=== PATIENT | female | born 1950 | race Caucasian/White ===

== ENCOUNTER → 2018-02-07 08:58 | Outpatient (CLI) | payer OTHER, MEDICARE, SELFPAY ==
[2018-02-07 11:08] LABS: ALB/GLOB Ratio 1.4 RATIO (0.9-2.4); AST(SGOT) 18 U/L (15-37); Alanine Aminotransfer ALT/SGPT 26 U/L (13-56); Albumin, Serum 4.2 g/dL (3.2-5.0); Alkaline Phosphatase 58 U/L (45-117); Anion Gap 10 (5-15); BUN 27 mg/dL (7-18); BUN/Creat Ratio 24.1 RATIO (10-20); Calcium,Total 10.4 mg/dL (8.5-10.1); Chloride 106 mmol/L (98-107); Creatinine, Serum 1.12 mg/dL (0.55-1.02); EST Glomerular Filtration Rate 52 mL/min (>60); Est Glom Filt Rate - Afr Amer 63 mL/min (>60); Globulin 3.1 g/dL (2.2-4.2); Glucose 81 mg/dL (74-106); Potassium 4.7 mmol/L (3.5-5.1); Protein, Total 7.3 g/dL (6.4-8.2); Sodium Level 141 mmol/L (136-145)
== END ==
PROVIDERS: Family Provider Family Medicine; PCP Family Medicine; Visit Provider Family Medicine
DX: E11.9 Type 2 diabetes mellitus without complications (principal)
CPT/HCPCS: 36415; 80053; 84443

== ENCOUNTER → 2018-03-20 08:55 | Outpatient (CLI) | payer OTHER, MEDICARE, SELFPAY ==
--- NOTE | 2018-03-20 08:55 | DT_ITS ---
This patient was seen during an EMR downtime March 18, 2018 - March 25, 2018. This patient may have a combination of paper and electronic documentation or all paper documentation. All documentation is viewable within the e-chart portion of [facility] for each patient visit.
[2018-03-25 12:44] LABS: BUN 28 mg/dL (7-18); BUN/Creat Ratio 26.9 RATIO (10-20); Calcium,Total 9.7 mg/dL (8.5-10.1); Creatinine, Serum 1.04 mg/dL (0.55-1.02); EST Glomerular Filtration Rate 56 mL/min (>60); Est Glom Filt Rate - Afr Amer 68 mL/min (>60); Glucose 176 mg/dL (74-106); PTHIN 70.3 pg/mL (18.4-80.1); Potassium 4.3 mmol/L (3.5-5.1); Sodium Level 141 mmol/L (136-145)
[2018-03-25 12:45] LABS: Anion Gap 11 (5-15); Chloride 107 mmol/L (98-107)
== END ==
PROVIDERS: Family Provider Family Medicine; PCP Family Medicine; Visit Provider Family Medicine
DX: E83.52 Hypercalcemia (principal)
CPT/HCPCS: 36415; 80048; 82330; 83970

== ENCOUNTER → 2018-12-19 08:36 | Outpatient (CLI) | payer OTHER, MEDICARE, SELFPAY ==
[2018-12-19 10:39] LABS: ALB/GLOB Ratio 1.3 RATIO (0.9-2.4); AST(SGOT) 13 U/L (15-37); Alanine Aminotransfer ALT/SGPT 20 U/L (13-56); Albumin, Serum 4.1 g/dL (3.2-5.0); Alkaline Phosphatase 72 U/L (45-117); Anion Gap 8 (5-15); BUN 23 mg/dL (7-18); BUN/Creat Ratio 24.4 RATIO (10-20); Calcium,Total 9.6 mg/dL (8.5-10.1); Chloride 109 mmol/L (98-107); Cholesterol 162 mg/dL (200); Creatinine, Serum 0.94 mg/dL (0.55-1.02); EST Glomerular Filtration Rate 63 mL/min (>60); Est Glom Filt Rate - Afr Amer 76 mL/min (>60); Ferritin 23 ng/mL (8-252); Globulin 3.1 g/dL (2.2-4.2); Glucose 120 mg/dL (74-106); High Density Lipoprotein 43 mg/dL; Magnesium 1.6 mg/dL (1.6-2.6); Potassium 4.2 mmol/L (3.5-5.1); Protein, Total 7.2 g/dL (6.4-8.2); Sodium Level 140 mmol/L (136-145); Thyroid Stim Hormone (TSH) 1.47 uIU/mL (0.358-3.74); Triglycerides 172 mg/dL; Very Low Density Lipoprotein 34 mg/dL (5-40)
[2018-12-19 10:58] LABS: Vitamin B12 200 pg/mL (211-911); Vitamin D,25 Hydroxy 13.2 ng/mL (29.95-100.01)
== END ==
PROVIDERS: Family Provider Family Medicine; PCP Family Medicine; Referring Provider Family Medicine; Visit Provider Family Medicine
DX: R20.2 Paresthesia of skin (principal); E11.9 Type 2 diabetes mellitus without complications
CPT/HCPCS: 36415; 80053; 80061; 82306; 82607; 82728; 83735; 84443

== ENCOUNTER → 2019-02-27 | Outpatient (CLI) | payer OTHER, MEDICARE, SELFPAY ==
[2019-02-27 12:35] LABS: Anion Gap 10 (5-15); BUN 23 mg/dL (7-18); BUN/Creat Ratio 20.5 RATIO (10-20); Calcium,Total 10.1 mg/dL (8.5-10.1); Chloride 107 mmol/L (98-107); Creatinine, Serum 1.12 mg/dL (0.55-1.02); EST Glomerular Filtration Rate 52 mL/min (>60); Est Glom Filt Rate - Afr Amer 62 mL/min (>60); Glucose 108 mg/dL (74-106); Potassium 4.7 mmol/L (3.5-5.1); Sodium Level 143 mmol/L (136-145)
[2019-02-27 13:10] LABS: Vitamin B12 1375 pg/mL (211-911); Vitamin D,25 Hydroxy 49.2 ng/mL (29.95-100.01)
== END | disposition home or self-care (01) ==
PROVIDERS: Family Provider Family Medicine; PCP Family Medicine; Referring Provider Family Medicine; Visit Provider Family Medicine
DX: I10 Essential (primary) hypertension (principal); E53.8 Deficiency of other specified B group vitamins; E55.9 Vitamin D deficiency, unspecified
CPT/HCPCS: 36415; 80048; 82306; 82607

== ENCOUNTER → 2019-07-31 10:24 | Outpatient (CLI) | payer OTHER, MEDICARE, SELFPAY ==
[2019-07-31 12:35] LABS: Anion Gap 6 (5-15); BUN 28 mg/dL (7-18); BUN/Creat Ratio 23.9 RATIO (10-20); Calcium,Total 10.4 mg/dL (8.5-10.1); Chloride 107 mmol/L (98-107); Cholesterol 155 mg/dL (200); Creatinine, Serum 1.17 mg/dL (0.55-1.02); EST Glomerular Filtration Rate 49 mL/min (>60); Est Glom Filt Rate - Afr Amer 59 mL/min (>60); Glucose 109 mg/dL (74-106); High Density Lipoprotein 45 mg/dL; Potassium 4.5 mmol/L (3.5-5.1); Sodium Level 139 mmol/L (136-145); Triglycerides 165 mg/dL; Very Low Density Lipoprotein 33 mg/dL (5-40)
[2019-07-31 12:39] LABS: Vitamin B12 1389 pg/mL (211-911)
== END ==
PROVIDERS: Family Provider Family Medicine; PCP Family Medicine; Referring Provider Family Medicine; Visit Provider Family Medicine
DX: E11.9 Type 2 diabetes mellitus without complications (principal); E53.8 Deficiency of other specified B group vitamins; E55.9 Vitamin D deficiency, unspecified
CPT/HCPCS: 36415; 80048; 80061; 82306; 82607

== ENCOUNTER → 2019-12-22 08:39 | Outpatient (CLI) | payer OTHER, MEDICARE, SELFPAY ==
[2019-12-22 10:27] LABS: Anion Gap 6 (5-15); BUN 25 mg/dL (7-18); Chloride 109 mmol/L (98-107); EST Glomerular Filtration Rate 59 mL/min (>60); Est Glom Filt Rate - Afr Amer 71 mL/min (>60); Glucose 138 mg/dL (74-106); Potassium 4.2 mmol/L (3.5-5.1); Sodium Level 140 mmol/L (136-145)
== END ==
PROVIDERS: PCP Family Medicine; Referring Provider Family Medicine; Visit Provider Family Medicine
DX: I10 Essential (primary) hypertension (principal)
CPT/HCPCS: 36415; 80048

== ENCOUNTER → 2020-10-21 10:04 | Outpatient (CLI) | payer OTHER, MEDICARE, SELFPAY ==
[2020-10-21 12:54] LABS: Vitamin D,25 Hydroxy 21.9 ng/mL
[2020-10-21 13:03] LABS: ALB/GLOB Ratio 1.3 RATIO (0.9-2.4); AST(SGOT) 15 U/L (15-37); Alanine Aminotransfer ALT/SGPT 31 U/L (13-56); Albumin, Serum 4.1 g/dL (3.2-5.0); Alkaline Phosphatase 88 U/L (45-117); Anion Gap 7 (5-15); BUN 26 mg/dL (7-18); BUN/Creat Ratio 23.6 RATIO (10-20); Calcium,Total 9.8 mg/dL (8.5-10.1); Chloride 107 mmol/L (98-107); Cholesterol 170 mg/dL (200); EST Glomerular Filtration Rate 52 mL/min (>60); Est Glom Filt Rate - Afr Amer 63 mL/min (>60); Globulin 3.2 g/dL (2.2-4.2); Glucose 169 mg/dL (74-106); High Density Lipoprotein 47 mg/dL; Potassium 4.6 mmol/L (3.5-5.1); Protein, Total 7.3 g/dL (6.4-8.2); Sodium Level 138 mmol/L (136-145); Triglycerides 194 mg/dL; Very Low Density Lipoprotein 39 mg/dL (5-40)
== END ==
PROVIDERS: PCP Family Medicine; Referring Provider Family Medicine; Visit Provider Family Medicine
DX: E78.5 Hyperlipidemia, unspecified (principal); E11.9 Type 2 diabetes mellitus without complications; E55.9 Vitamin D deficiency, unspecified
CPT/HCPCS: 36415; 80053; 80061; 82306

== ENCOUNTER → 2020-12-14 09:00 | Outpatient (CLI) | payer OTHER, MEDICARE, SELFPAY ==
--- NOTE | 2020-12-14 09:08 | US_ITS ---
STUDY: THYROID ULTRASOUND REASON FOR EXAM: Female, 70 years old. NODULE TECHNIQUE: Ultrasound evaluation of the thyroid was performed with real-time and static alejandre-scale imaging. COMPARISON: None. FINDINGS: RIGHT LOBE: The right lobe of the thyroid gland measures 4.5 cm x 1.7 cm x 2.3 cm. There is a homogeneous echotexture. There is a 9 mm x 4 mm x 4 mm cyst. There is also evidence of a 1 cm x 0.6 x 0.7 cm slightly echogenic solid nodule as well as a complex solid and cystic nodule with calcific rim measuring 1.1 cm x 0.9 cm x 0.8 cm. LEFT LOBE: The left lobe of the thyroid gland measures 4.3 cm x 1.7 cm x 1.5 cm. There is a homogeneous echotexture. There are 3 subcentimeter solid and cystic nodules the largest measuring 1 cm x 0.6 cm x 0.4 cm. ISTHMUS: The isthmus measures 4 mm. There is a 2.2 cm x 0.7 cm x 0.5 cm benign appearing left cervical lymph US/Thyroid IMPRESSION: Bilateral thyroid nodules. The largest nodule in the right lobe measures 1.1 cm x 0.9 cm x 0.8 cm. This is a complex solid and cystic nodule with calcific rim. The largest nodule in the left lobe measuring 1 cm x 0.6 x 0.4 cm. Electronically Signed: Noe Evans MD at 13:35 EST , Service support ,
== END ==
PROVIDERS: PCP Family Medicine; Referring Provider Otolaryngology; Visit Provider Otolaryngology
DX: E04.1 Nontoxic single thyroid nodule (principal)
CPT/HCPCS: 76536

== ENCOUNTER → 2021-07-04 08:28 | Outpatient (CLI) | payer OTHER, MEDICARE, SELFPAY ==
[2021-07-04 10:31] LABS: Vitamin D,25 Hydroxy 43.2 ng/mL
[2021-07-04 10:49] LABS: ALB/GLOB Ratio 1.1 RATIO (0.9-2.4); AST(SGOT) 19 U/L (15-37); Alanine Aminotransfer ALT/SGPT 34 U/L (13-56); Albumin, Serum 3.7 g/dL (3.2-5.0); Alkaline Phosphatase 74 U/L (45-117); Anion Gap 10 (5-15); BUN 28 mg/dL (7-18); BUN/Creat Ratio 28.4 RATIO (10-20); Calcium,Total 9.8 mg/dL (8.5-10.1); Chloride 107 mmol/L (98-107); Cholesterol 174 mg/dL (200); Creatinine, Serum 0.99 mg/dL (0.55-1.02); EST Glomerular Filtration Rate 59 mL/min (>60); Est Glom Filt Rate - Afr Amer 72 mL/min (>60); Globulin 3.5 g/dL (2.2-4.2); Glucose 142 mg/dL (74-106); High Density Lipoprotein 52 mg/dL; Potassium 4.4 mmol/L (3.5-5.1); Protein, Total 7.2 g/dL (6.4-8.2); Sodium Level 139 mmol/L (136-145); Thyroid Stim Hormone (TSH) 1.48 uIU/mL (0.358-3.74); Triglycerides 194 mg/dL; Very Low Density Lipoprotein 39 mg/dL (5-40)
== END ==
PROVIDERS: PCP Family Medicine; Visit Provider Family Medicine
DX: E11.69 Type 2 diabetes mellitus with other specified complication (principal); E55.9 Vitamin D deficiency, unspecified
CPT/HCPCS: 36415; 80053; 80061; 82306; 84443

== ENCOUNTER → 2022-07-17 | Outpatient (CLI) | payer OTHER, MEDICARE, SELFPAY ==
[2022-07-17 10:23] LABS: Anion Gap 8 (5-15); BUN 26 mg/dL (7-18); BUN/Creat Ratio 26.2 RATIO (10-20); Calcium,Total 10.1 mg/dL (8.5-10.1); Chloride 107 mmol/L (98-107); Cholesterol 141 mg/dL (200); Creatinine, Serum 0.99 mg/dL (0.55-1.02); EST Glomerular Filtration Rate 59 mL/min (>60); Est Glom Filt Rate - Afr Amer 71 mL/min (>60); Glucose 117 mg/dL (74-106); High Density Lipoprotein 45 mg/dL; Potassium 4.1 mmol/L (3.5-5.1); Sodium Level 141 mmol/L (136-145); Triglycerides 116 mg/dL; Very Low Density Lipoprotein 23 mg/dL (5-40)
[2022-07-17 10:24] LABS: Vitamin B12 205 pg/mL (211-911); Vitamin D,25 Hydroxy 47.7 ng/mL
== END | disposition home or self-care (01) ==
LOC: MFPLAB 08:24
PROVIDERS: PCP Family Medicine; Visit Provider Family Medicine
DX: E11.59 Type 2 diabetes mellitus with other circulatory complications (principal); E53.8 Deficiency of other specified B group vitamins; E55.9 Vitamin D deficiency, unspecified
CPT/HCPCS: 36415; 80048; 80061; 82306; 82607

== ENCOUNTER → 2022-11-07 | Outpatient (CLI) | payer OTHER, MEDICARE, SELFPAY ==
[2022-11-07 12:30] LABS: Erythrocyte Sedimentation Rate 14 mm/hr (0-30)
[2022-11-07 12:33] LABS: Absolute Lymphocyte Count 1.61 X10^3/uL (0.83-4.51); Basophil# 0.04 X10^3/uL; Basophil% 0.7 % (0-1); Eosinophil# 0.44 X10^3/uL; Hematocrit 40.4 % (37-47); Hemoglobin 13.2 g/dL (12.0-15.0); Lymphocyte # 1.61 X10^3/ul (0.83-4.51); Lymphocyte % 29.1 % (19-41); Mean Corp Hgb Conc 32.7 g/dL (32-36); Mean Corpuscular Hgb 27.9 pg (27.0-32.0); Mean Corpuscular Volume 85.4 fL (81-99); Mean Platelet Vol. 10.8 fl (6.2-12.0); Monocyte# 0.49 X10^3/uL; Monocyte% 8.9 % (0-10); NRBC Flagged by Analyzer 0 % (0-5); Neutrophil # 2.95 X10^3/uL (2.7-7.7); Neutrophil % 53.3 % (47-70); Platelet Count 283 K/mm3 (150-450); RBC Distribution Width CV 14.8 % (11.6-14.6); RBC Distribution Width SD 46.5 fl (35.1-43.9); Red Blood Count 4.73 M/mm3 (4.2-5.4); White Blood Count 5.5 K/mm3 (4.4-11.0)
[2022-11-07 13:07] LABS: ALB/GLOB Ratio 1.3 RATIO (0.9-2.4); AST(SGOT) 17 U/L (15-37); Alanine Aminotransfer ALT/SGPT 28 U/L (13-56); Albumin, Serum 4.3 g/dL (3.2-5.0); Alkaline Phosphatase 76 U/L (45-117); Anion Gap 13 (5-15); BUN 30 mg/dL (7-18); BUN/Creat Ratio 25.4 RATIO (10-20); CRP, High Sensitivity Cardiac 0.69 mg/L; Calcium,Total 10.3 mg/dL (8.5-10.1); Chloride 107 mmol/L (98-107); Creatinine, Serum 1.18 mg/dL (0.55-1.02); EST Glomerular Filtration Rate 48 mL/min (>60); Est Glom Filt Rate - Afr Amer 58 mL/min (>60); Ferritin 33 ng/mL (8-252); Globulin 3.3 g/dL (2.2-4.2); Glucose 112 mg/dL (74-106); Iron 74 ug/dL (50-170); Potassium 4.4 mmol/L (3.5-5.1); Protein, Total 7.6 g/dL (6.4-8.2); Sodium Level 140 mmol/L (136-145); Thyroid Stim Hormone (TSH) 1.16 uIU/mL (0.358-3.74)
[2022-11-08 20:01] LABS: Carcinoembryonic Antigen < 0.6 ng/mL (0.0-4.7)
== END | disposition home or self-care (01) ==
LOC: MTLAB 09:28
PROVIDERS: PCP Family Medicine; Referring Provider Family Medicine; Visit Provider Family Medicine
DX: R63.4 Abnormal weight loss (principal); R19.5 Other fecal abnormalities
CPT/HCPCS: 36415; 80053; 82378; 82728; 83540; 84443; 85025; 85652; 86141

== ENCOUNTER → 2022-11-20 | Outpatient (CLI) | payer OTHER, MEDICARE, SELFPAY ==
--- NOTE | 2022-11-20 07:54 | CT_ITS ---
STUDY: CT ABDOMEN AND PELVIS WITH CONTRAST REASON FOR EXAM: Female, 71 years old. Weight loss. RADIATION DOSAGE (If Supplied By Facility): CTDIvol = ( 21.15 ) mGy, DLP = ( 1138.25 ) mGycm TECHNIQUE: Transaxial images were obtained from the dome of the diaphragm to the symphysis pubis without oral contrast. IV 100mL Isovue-370 was administered. Sagittal and coronal images were reconstructed. Individualized dose optimization techniques were used for this CT. COMPARISON: None. FINDINGS: The visualized lung bases are unremarkable. Coronary artery calcification. There is decreased attenuation of the liver consistent with steatosis. Normal gallbladder and extrahepatic biliary system. Normal spleen. Normal pancreas. Normal bilateral adrenal glands. Right renal cysts. The larger cyst measures 5.6 cm x 6.1 and is in the posterior medial aspect of the kidney. Small left renal cysts. The largest measures 8.5 mm. Normal visualized stomach. Normal small intestine. Normal colon. History of prior appendectomy. There is diffuse atherosclerotic calcification of the abdominal aorta, without a demonstrated aneurysm. Normal inferior vena cava. Normal retroperitoneum. Normal urinary bladder. Minimal anterior abdominal wall skin thickening but the increased markings in the subcutaneous fat most likely secondary to prior INSULIN injection. Small umbilical hernia containing fat. There are diffuse degenerative changes of the visualized lumbar spine. Loss of the normal lumbar lordosis. CT/Abdomen/Pelvis WITH Contrast IMPRESSION: Coronary artery calcification. Fatty infiltration of the liver. Bilateral renal cysts more prominent on the right side. Small umbilical hernia. Electronically Signed: Noe Evans MD at 14:17 EST ,
== END | disposition home or self-care (01) ==
LOC: CT 07:52
PROVIDERS: PCP Family Medicine; Visit Provider Family Medicine
DX: R63.4 Abnormal weight loss (principal); I25.10 Atherosclerotic heart disease of native coronary artery without angina pectoris; Q61.02 Congenital multiple renal cysts; K46.9 Unspecified abdominal hernia without obstruction or gangrene; K76.0 Fatty (change of) liver, not elsewhere classified
CPT/HCPCS: 74177; Q9967

== ENCOUNTER → 2024-02-25 | Outpatient (CLI) | payer OTHER, MEDICARE, SELFPAY | END | disposition home or self-care (01) | LOC: MFPLAB 10:18 | PROVIDERS: PCP Family Medicine; Visit Provider Family Medicine | DX: Z00.00 Encounter for general adult medical examination without abnormal findings (principal) ==

== ENCOUNTER → 2024-02-26 | Outpatient (CLI) | payer OTHER, MEDICARE, SELFPAY ==
[2024-02-26 15:27] LABS: Hematocrit 39.1 % (37-47); Hemoglobin 12.7 g/dL (12.0-15.0); Mean Corp Hgb Conc 32.5 g/dL (32-36); Mean Corpuscular Volume 86.1 fL (81-99); Mean Platelet Vol. 10.4 fl (6.2-12.0); Platelet Count 303 K/mm3 (150-450); RBC Distribution Width SD 43.8 fl (35.1-43.9); Red Blood Count 4.54 M/mm3 (4.2-5.4); White Blood Count 8.1 K/mm3 (4.4-11.0)
[2024-02-26 15:35] LABS: Vitamin B12 1838 pg/mL (211-911); Vitamin D,25 Hydroxy 97.4 ng/mL
[2024-02-26 16:07] LABS: ALB/GLOB Ratio 1.4 RATIO (0.9-2.4); AST(SGOT) 19 U/L (15-37); Alanine Aminotransfer ALT/SGPT 24 U/L (13-56); Albumin, Serum 4.3 g/dL (3.2-5.0); Alkaline Phosphatase 72 U/L (45-117); Anion Gap 6 (5-15); BUN 28 mg/dL (7-18); BUN/Creat Ratio 16.6 RATIO (10-20); Calcium,Total 10.7 mg/dL (8.5-10.1); Chloride 109 mmol/L (98-107); Creatinine, Serum 1.69 mg/dL (0.55-1.02); EST Glomerular Filtration Rate 32 mL/min (>60); Est Glom Filt Rate - Afr Amer 38 mL/min (>60); Glucose 128 mg/dL (74-106); Iron 66 ug/dL (50-170); Magnesium 1.8 mg/dL (1.6-2.6); Potassium 4.1 mmol/L (3.5-5.1); Protein, Total 7.3 g/dL (6.4-8.2); Sodium Level 137 mmol/L (136-145); Thyroid Stim Hormone (TSH) 1.39 uIU/mL (0.358-3.74)
== END | disposition home or self-care (01) ==
LOC: MFPLAB 11:59
PROVIDERS: PCP Family Medicine; Visit Provider Family Medicine
DX: R00.2 Palpitations (principal); E53.8 Deficiency of other specified B group vitamins; R42 Dizziness and giddiness; E55.9 Vitamin D deficiency, unspecified
CPT/HCPCS: 36415; 80053; 82306; 82607; 83540; 83735; 84443; 85027

== ENCOUNTER → 2024-03-04 | Outpatient (CLI) | payer OTHER, MEDICARE, SELFPAY ==
--- NOTE | 2024-03-04 09:16 | BD_ITS ---
STUDY: DUAL ENERGY X-RAY ABSORPTIOMETRY / DXA REASON FOR EXAM: Female, 73 years old. Z780 TECHNIQUE: Bone Mineral Density (BMD) measurements of lumbar spine and bilateral hips were obtained. COMPARISON: None. FINDINGS: Lumbar Spine (L1-L4): g/cm2 (0.960) / T-score (-0.8) / Z-score (1.5) Findings are suggestive of normal bone density with a low fracture risk. Left Femur Total: g/cm2 (0.787) / T-score (-1.3) / Z-score (0.4) Left Femoral Neck: g/cm2 (0.680) / T-score (-1.5) / Z-score (0.4) Right Femur Total: g/cm2 (0.842) / T-score (-0.8) / Z-score (0.8) Right Femoral Neck: g/cm2 (0.682) / T-score (-1.5) / Z-score (0.4) BD/Dexa Bone Density Study IMPRESSION: The patient is considered osteopenic as outlined below according to World [employer] Organization (WHO) criteria with a low fracture risk. Reference Information: The T-score is the number of standard deviations above or below the standard which is normal for young adults at their peak bone mineral density. The World Health Organization (WHO) interprets the T-scores as follows: Above -1 Normal bone density Between -1 and -2.5 Osteopenia Equal to / or below -2.5 Osteoporosis As a practical clinical guideline, osteopenia may be graded as follows: Mild -1 through -1.5 Moderate -1.6 through -2.0 Severe -2.1 through -2.4 The Z-score is the number of standard deviations above or below age-matched controls. A Z-score of less than -1.5 would be considered abnormal. References: 1. NIH Osteoporosis and Related Bone Diseases www osteo.org 2. International Society for Clinical Densitometry www iscd.org 3. National Osteoporosis Foundation www nof.org Electronically Signed: Noe Evans MD at 15:40 EDT ,
== END | disposition home or self-care (01) ==
LOC: OPBD 09:13
PROVIDERS: PCP Family Medicine; Referring Provider Family Medicine; Visit Provider Family Medicine
DX: Z00.00 Encounter for general adult medical examination without abnormal findings (principal); Z78.0 Asymptomatic menopausal state
CPT/HCPCS: 77080

== ENCOUNTER → 2024-08-04 | Outpatient (CLI) | payer OTHER, MEDICARE, SELFPAY ==
--- NOTE | 2024-08-04 08:37 | ECHOD_ITS ---
Reason For Study: DYSPNEA Procedure This was a 2D Doppler, Color Flow transthoracic echocardiogram. Exam performed in department. Left Ventricle Normal size and thickness. The left ventricular ejection fraction is 65 %. Normal diastology for age. Right Ventricle Normal right ventricle. Atria The left and right atria are normal. Aneurysmal atrial septum. Bubble contrast study is positive for PFO. Mitral Valve Mild mitral annular calcification. Tricuspid Valve Trivial tricuspid valve insufficiency. Normal pulmonary artery pressure. Aortic Valve Trisinus/trileaflet aortic valve. Mild diffuse aortic valve thickening. Pulmonic Valve The pulmonic valve is not well visualized. Trivial pulmonic valve insufficiency. Great Vessels Normal sized aortic root. Pericardium/Pleural No pericardial effusion. Medication 22 gauge I.V. with prn adaptor inserted into right arm. Performed a rapid injection of agitated mix of 9 cc saline and 1cc air to assess for atrial septal defect. MMode/2D Measurements & Calculations LVIDd: 4.5 cm IVSd: 1.1 cm LVOT diam: 2.1 cm LVIDs: 2.5 cm LVPWd: 0.94 cm RVDd: 3.4 cm FS: 45.3 % LVOT area: 3.4 cm2 asc Aorta Diam: 3.4 cm LAV(MOD-bp): 51.7 ml LVAd ap4: 23.5 cm2 LAV(MOD-bp) Indexed: 27.3 ml/m2 LVLd ap4: 6.9 cm LAV(MOD-sp2): 55.8 ml EDV(MOD-sp4): 63.5 ml LAV(MOD-sp4): 44.7 ml EDV(sp4-el): 67.8 ml LVAs ap4: 12.2 cm2 LVLs ap4: 5.8 cm ESV(MOD-sp4): 20.9 ml ESV(sp4-el): 21.8 ml EF(MOD-sp4): 67.1 % EF(sp4-el): 67.9 % LVAd ap2: 22.3 cm2 SV(MOD-sp4): 42.6 ml SV(MOD-sp2): 38.7 ml LVLd ap2: 6.9 cm EDV(MOD-sp2): 58.6 ml EDV(sp2-el): 60.9 ml LVAs ap2: 11.7 cm2 LVLs ap2: 5.7 cm ESV(MOD-sp2): 19.9 ml ESV(sp2-el): 20.4 ml EF(MOD-sp2): 66.0 % SV(sp4-el): 46.0 ml Ao sinus diam: 3.[address] Junction: 2.8 cm LA dimension(2D): 3.8 cm LA A4 area: 16.9 cm2 RA A4 area: 10.3 cm2 TAPSE: 2.0 cm Time Measurements MV dec time: 0.29 sec Doppler Measurements & Calculations MV E max yefri: 83.1 cm/sec Lat Peak E' Yefri: 14.3 cm/sec Med Peak E' Yefri: 6.9 cm/sec MV A max yefri: 88.8 cm/sec E/E' lat: 5.8 E/E' med: 12.1 MV E/A: 0.94 MV dec slope: 290.4 cm/sec2 Ao V2 max: 166.3 cm/sec LV V1 max: 127.0 cm/sec Ao max P.1 mmHg LV V1 max P.4 mmHg Ao V2 mean: 102.7 cm/sec LV V1 mean P.0 mmHg Ao mean P.0 mmHg LV V1 mean: 79.4 cm/sec Ao V2 VTI: 38.3 cm LV V1 VTI: 30.2 cm AV (velocity ratio): 0.79 LOYD(I,D): 2.7 cm2 LOYD(V,D): 2.6 cm2 SV(LVOT): 104.1 ml PA V2 max: 161.1 cm/sec TR max yefri: 257.9 cm/sec PA max PG (full): 6.3 mmHg TR max P.6 mmHg ECHO/Echo Complete Interpretation Summary The left ventricular ejection fraction is 65 %. Aneurysmal atrial septum. Bubble contrast study is positive for PFO. Mild mitral annular calcification. Mild diffuse aortic valve thickening. Ordering Physician: Marko Andersen Referring Physician: Roger Moctezuma MD Performed By: Jane Awad RDCS
== END | disposition home or self-care (01) ==
LOC: CVS 08:37
PROVIDERS: PCP Family Medicine; Referring Provider Internal Medicine Cardiovascular Disease; Visit Provider Internal Medicine Cardiovascular Disease
DX: R06.09 Other forms of dyspnea (principal); E11.9 Type 2 diabetes mellitus without complications
CPT/HCPCS: 93306; A4216

== ENCOUNTER → 2024-08-25 | Outpatient (CLI) | payer OTHER, MEDICARE, SELFPAY ==
[2024-08-25 11:07] LABS: Anion Gap 7 (5-15); BUN 29 mg/dL (7-18); BUN/Creat Ratio 15.6 RATIO (10-20); Calcium,Total 10.4 mg/dL (8.5-10.1); Chloride 108 mmol/L (98-107); Creatinine, Serum 1.86 mg/dL (0.55-1.02); EST Glomerular Filtration Rate 28 mL/min (>60); Est Glom Filt Rate - Afr Amer 34 mL/min (>60); Glucose 137 mg/dL (74-106); Potassium 4.1 mmol/L (3.5-5.1); Sodium Level 139 mmol/L (136-145)
== END | disposition home or self-care (01) ==
LOC: LAB 10:22
PROVIDERS: PCP Family Medicine; Referring Provider Internal Medicine Cardiovascular Disease; Visit Provider Internal Medicine Cardiovascular Disease
DX: R06.09 Other forms of dyspnea (principal); E11.22 Type 2 diabetes mellitus with diabetic chronic kidney disease; N18.32 Chronic kidney disease, stage 3b
CPT/HCPCS: 36415; 80048

== ENCOUNTER → 2024-09-16 | Outpatient (CLI) | payer OTHER, MEDICARE, SELFPAY ==
[2024-09-16 12:24] VITALS: BP 147/61; PULSE 50; RESP 16; TEMP 36.4; O2SAT 98; BMI 27.1
[2024-09-16] MEDS: 0.9% Normal Saline (500mL Bag) 500 ML IV (12:45)
[2024-09-16 13:43] VITALS: BP 128/60; PULSE 47; RESP 16; O2SAT 96
[2024-09-16 13:51] VITALS: BP 128/60; PULSE 47
[2024-09-16] MEDS: Nitroglycerin SL (ED/IMG/CATH) 0.4 MG TABLET SL (13:51)
[2024-09-16 14:00] VITALS: BP 141/60; PULSE 49; RESP 16; O2SAT 98
--- NOTE | 2024-09-16 14:00 | CT_ITS ---
STUDY: CT CHEST WITH CONTRAST REASON FOR EXAM: Female, 73 years old. GRUBER r/o CAD RADIATION DOSAGE (If Supplied By Facility): CTDIvol = ( 41.82 ) mGy, DLP = ( 2117.82 ) mGycm TECHNIQUE: Transaxial imaging was performed following intravenous administration of IV 75mL Isovue-370. Cardiac over read examination. Individualized dose optimization techniques were used for this CT. COMPARISON: No relevant priors. FINDINGS: CHEST The lungs are normal. There is no demonstrated pleural abnormality. There are calcifications of the coronary arteries. Normal mediastinum. Normal hilar regions. Normal unenhanced pulmonary arteries. There is atherosclerotic calcification of the aortic arch. There are degenerative changes of the thoracic spine. Diffuse fatty infiltration of the liver. CT/Limited Chest CT Cardiac Only IMPRESSION: Coronary artery calcification. Diffuse fatty infiltration of the liver. Electronically Signed: Noe Evans MD at 15:16 EST ,
--- NOTE | 2024-09-19 07:49 | CA.SCORE ---
Calcium Scoring Date of Study:: 09/16/24 Coronary Calcium Scoring: High-resolution Computed Tomographic imaging of the chest was performed on [ ], with particular attention paid to the coronary arteries. Images from the examination were analyzed for the presence and extent of coronary artery calcification , using coronary calcium quantification software. The patient tolerated the procedure well and there were no complications. The results of the coronary calcification analysis are provided below. Calcium Scoring Interpretation: Different methods to categorize the overall amount of coronary plaque. Overall amount CAC SIS Visual of coronary plaque P1 Mild -100 <2 1-2 vessels with mild amount of plaque P2 Moderate 101-300 3-4 1-2 vessels with moderate amount, 3 vessels with mild amount of plaque P3 Severe 301-999 5-7 3 vessels with moderate amount, 1 vessel with severe amount of plaque P4 Extensive >1000 >8 2-3 vessels with severe amount of plaque
--- NOTE | 2024-09-19 10:05 | CCTA.WCONT ---
CCTA w/Cont Coronary Arteries Date of Study:: 09/16/24 Shortness of breath Coronary Calcium Scoring: High-resolution Computed Tomographic imaging of the chest was performed on [ ], with particular attention paid to the coronary arteries. Intravenous contrast agent was administered per protocol and images reconstructed and displayed. LEFT MAIN CORONARY ARTERY: Arises from the left coronary cusp with mild calcification present. No obvious stenosis present [] LEFT ANTERIOR DESCENDING CORONARY ARTERY: She does have moderate calcification noted in the proximal and mid segment and moderately severe in the midsegment. There is probably moderate stenosis noted in the left anterior descending artery [] LEFT CIRCUMFLEX CORONARY ARTERY: This vessel has eccentric calcification present in the proximal segment with moderate calcification present. [] RIGHT CORONARY ARTERY: This is a dominant vessel with moderate proximal to mid calcification present and likely moderate stenosis present. [] THORACIC AORTA: Calcification [] PULMONARY ARTERY: [] LEFT ATRIUM/APPENDAGE: [] MITRAL VALVE: [] AORTIC VALVE: [] LEFT VENTRICLE: [] CORONARY CALCIUM SCORE: Not performed Conclusion: CT angiogram mildly suboptimal with moderate three-vessel calcification and likely moderate occlusive disease. []
== END | disposition home or self-care (01) ==
LOC: CT 12:14
PROVIDERS: PCP Family Medicine; Referring Provider Internal Medicine Cardiovascular Disease; Visit Provider Internal Medicine Cardiovascular Disease
DX: R06.09 Other forms of dyspnea (principal); I25.10 Atherosclerotic heart disease of native coronary artery without angina pectoris
CPT/HCPCS: 96360; 75574; 76380; Q9967

== ENCOUNTER → 2024-09-23 | Outpatient (CLI) | payer OTHER, MEDICARE, SELFPAY ==
[2024-09-23 12:00] LABS: Absolute Lymphocyte Count 1.39 X10^3/uL (0.83-4.51); Absolute Neutrophil Count 2.8 X10^3/uL (2.0-7.7); Basophil# 0.07 X10^3/uL; Basophil% 1.3 % (0-1); Eosinophil# 0.62 X10^3/uL; Eosinophils% 11.6 % (0-5); Hematocrit 36.1 % (37-47); Hemoglobin 11.7 g/dL (12.0-15.0); Lymphocyte # 1.39 X10^3/ul (0.83-4.51); Lymphocyte % 25.9 % (19-41); Mean Corp Hgb Conc 32.4 g/dL (32-36); Mean Corpuscular Hgb 28.5 pg (27.0-32.0); Mean Platelet Vol. 9.8 fl (6.2-12.0); Monocyte# 0.42 X10^3/uL; Monocyte% 7.8 % (0-10); NRBC Flagged by Analyzer 0 % (0-5); Neutrophil % 52.3 % (47-70); Platelet Count 255 K/mm3 (150-450); RBC Distribution Width CV 13.9 % (11.6-14.6); RBC Distribution Width SD 44.7 fl (35.1-43.9); White Blood Count 5.4 K/mm3 (4.4-11.0)
[2024-09-23 12:08] LABS: International Normalized Ratio 1.2; Prothrombin Time (Protime)PT. 15.4 SECONDS (11.7-14.9)
[2024-09-23 13:13] LABS: Anion Gap 9 (5-15); BUN 43 mg/dL (7-18); BUN/Creat Ratio 21.3 RATIO (10-20); Calcium,Total 10.6 mg/dL (8.5-10.1); Chloride 112 mmol/L (98-107); Creatinine, Serum 2.02 mg/dL (0.55-1.02); EST Glomerular Filtration Rate 26 mL/min (>60); Est Glom Filt Rate - Afr Amer 31 mL/min (>60); Glucose 159 mg/dL (74-106); Potassium 4.3 mmol/L (3.5-5.1); Sodium Level 138 mmol/L (136-145)
== END | disposition home or self-care (01) ==
PROVIDERS: PCP Family Medicine; Referring Provider Internal Medicine Cardiovascular Disease; Visit Provider Internal Medicine Cardiovascular Disease
DX: N18.32 Chronic kidney disease, stage 3b (principal); I25.10 Atherosclerotic heart disease of native coronary artery without angina pectoris
CPT/HCPCS: 36415; 80048; 85025; 85610; 85730

== ENCOUNTER 2024-10-20 08:28 | Day surgery (SDC) | payer MEDICARE, OTHER, SELFPAY ==
--- NOTE | 2024-09-22 15:15 | PCM.HP.BLA ---
History and Physical Date of Admission: 10/20/24 Geri Martines is a 73-year-old white female recently established with us for concerns over progressive shortness of breath with exertion. She is here today to undergo a diagnostic heart catheterization. She also has a history of chronic kidney disease last blood work in February 2024 showed a creatinine of 1.69 with a GFR of 32. She also has a history of diabetes. The patient comes in reporting that she is gone to the point that when she goes to prepare meals she has to stop after just getting pots and pans out to prepare the meal sit down and rest and then gets up and starts to prepare the meal and has to sit down and rest again due to shortness of breath and fatigue. She is not able to go shopping that she cannot walk the [place] of the grocery store without having to sit down and rest. The patient's calcium is gone up over the last 6 months. It is 10.7 in February. Her LFTs were normal bilirubin was normal and C-reactive protein normal in October 2023. Patient's thyroid TSH was normal in February 2024. The patient was evaluated by the primary service and she declined a stress test as she is fearful of having a treadmill or pharmacologic stress test. She had an echo 20 or 30 years ago that she says did not show anything significant. This dyspnea on exertion and fatigue started about 3 months ago and has been progressive. She denies any lower extremity edema denies any PND orthopnea she does not have any neuropathy or carpal tunnel issues and has not had atrial fibrillation to suggest amyloid. The patient's EKG shows sinus bradycardia with nonspecific T wave changes otherwise is unremarkable. She underwent an echocardiogram which demonstrated an ejection fraction of 65%, aneurysmal atrial septum. Bubble contrast study positive for PFO. Mild mitral annular calcification, mild diffuse aortic valve thickening. She had a coronary angiogram which demonstrated mildly suboptimal with moderate three-vessel disease calcification likely with moderate occlusive disease. Because of this she will undergo a diagnostic heart catheterization. [facility] Medical History Type 2 diabetes mellitus Hyperlipidemia Dyspnea on exertion Hypertension Surgical History History of appendectomy History of tubal ligation Social History Smoking Status: Never smoker alcohol intake: never substance use type: marijuana caffeine: Yes ROS Const Const: Positive for fatigue and weakness ENT ENT: Negative for dizziness or balance problems Cardio Chest Pain: No Palpitations: No Edema: None Muscle aches with walking: None Resp Respiratory: Positive for SOB with activity and SOB at rest; Negative for SOB orthopnea\SOB lying down GI GI: Positive for nausea; Negative vomiting or heartburn Musc Musc: Negative for muscle weakness or balance problems Neuro Neuro: Positive for near syncope and weakness; Negative for dizziness, lightheadedness or syncope Endo Endo: Positive for fatigue Cardiology Exam Const Appearance: cooperative, no acute distress and well developed Head Head: normal to inspection Eyes General: appearance normal, both eyes and all related structures Neck Neck: normal visual inspection and no JVD Carotids: Negative bruit Chest Chest inspection: normal inspection of the chest Auscultation: Bilateral: Clear to Auscultation Cardio Rate: regular rate Rhythm: regular rhythm Heart sounds: S1 normal and S2 normal; Negative rub, gallop or murmur GI GI: normal to inspection Neuro General: patient alert and patient oriented x3 Skin Skin: no rashes or lesions noted Extremities Lower Extremity Edema: None: Bilateral Psych Psychological: anxious Assessment & Plan Assessment/Plan (1) Dyspnea on exertion: (2) Atherosclerotic cardiovascular disease: (3) Abnormal coronary angiogram: PLAN: Plan Patient is scheduled to undergo a diagnostic heart catheterization. Plan of care will be based on findings.
[2024-10-17 08:20] VITALS: BMI 28.3
--- NOTE | 2024-10-20 11:29 | CL.D_ITS ---
Patient Name: RUDDY HESS Study Date: 10/20/2024 Performing: Ayan Whitaker MD Ht: 66 inches 167.64 cm : 1950 Wt: 176 lbs 79.83 kg Age: 73 Gender: female BSA: 1.89 PROCEDURE(S) PERFORMED DC02-(50210)LHC/COR CLINICAL PROFILE AND INDICATIONS Indications: Suspected CAD Heart Failure: None Stress/Imaging Cardiac CTA: Yes Result: 3VDCardiac CTA: 3VD CAD Presentations: Symptom unlikely to be ischemic. CONCLUSIONS Diffuse coronary calcification with moderate disease noted in the LAD mid to distal circumflex and ostial right coronary artery. RECOMMENDATIONS Will recommend pharmacologic myocardial perfusion stress test to evaluate the ostial right coronary artery DESCRIPTION OF PROCEDURE The patient arrived to the procedure lab. The risks and benefits of the procedure as well as a full description of our services here and current unavailability of surgical backup were fully explained to the patient and/or their significant other prior to the catheterization. The Timeout was completed, verifying the correct patient and procedure. The patient's procedural site was prepped and draped in the usual fashion. Local anesthetic was given subcutaneously to right radial region with Lidocaine 2%. Using a modified Seldinger technique, arterial access was obtained via the right radial artery, a 6Fr sheath was inserted. Left Coronary Artery selective angiography was performed in multiple views using a 5 Fr. 4.0 [place] catheter. Right Coronary Artery selective angiography was then performed in multiple views using a 5 Fr. 4.0 [place] catheter. Right Coronary Artery selective angiography was then performed in multiple views using a 5 Fr. JR 5 catheter.The arterial sheath was pulled and a TR Band was applied for hemostasis 10 ml of air CORONARY ANGIOGRAPHY DOMINANCE: Right Dominant LEFT HEART ASSESSMENT Left Ventricular Ejection Fraction: by Echo 65 % Normal LV wall motion Normal Left Ventricular systolic function LEFT MAIN: Mild calcification, No significant disease noted LEFT ANTERIOR DESCENDING ARTERY: Moderate calcification, Moderate luminal irregularities up to 50% CIRCUMFLEX ARTERY: Moderate calcification DISTAL CIRC: Moderate luminal irregularities up to 50% RIGHT CORONARY ARTERY: Rest of the vessel appears to have 30 to 50% diffuse stenosis present OSTIAL RCA: Moderate calcification, Moderate luminal irregularities up to 50% COMPLICATIONS No Complications PROCEDURE MEDICATIONS Fentanyl 50 mcg IV Versed 1 mg IV Oxygen: 2 L/min via nasal cannula Heparin given IA 10/20/2024 10:59:25 SUMMARY OF HEMODYNAMIC DATA Time AIR REST ECG 08:49:06 AO 132/58 (87) SA 11:08:23 AO 134/51 (80) 11:09:40 AIR REST 11:28:29 Signed By Ayan Whitaker MD On 10/20/2024 11:28:52 Ayan Whitaker MD
== END 2024-10-20 13:35 | disposition home or self-care (01) ==
PROVIDERS: PCP Family Medicine; Referring Provider Internal Medicine Cardiovascular Disease; Visit Provider Internal Medicine Cardiovascular Disease
DX: I25.10 Atherosclerotic heart disease of native coronary artery without angina pectoris (principal); E11.9 Type 2 diabetes mellitus without complications; E78.5 Hyperlipidemia, unspecified; I10 Essential (primary) hypertension; R53.83 Other fatigue; R06.02 Shortness of breath; Z98.51 Tubal ligation status; F12.90 Cannabis use, unspecified, uncomplicated; R06.09 Other forms of dyspnea; R93.1 Abnormal findings on diagnostic imaging of heart and coronary circulation
CPT/HCPCS: 93454; 99152; 99153; Q9967; C1769; C1894

== ENCOUNTER → 2024-11-18 | Outpatient (CLI) | payer OTHER, MEDICARE, SELFPAY ==
[2024-11-18 10:15] LABS: Hematocrit 36.9 % (37-47); Mean Corp Hgb Conc 32.5 g/dL (32-36); Mean Corpuscular Hgb 29.8 pg (27.0-32.0); Mean Corpuscular Volume 91.6 fL (81-99); Mean Platelet Vol. 10.2 fl (6.2-12.0); Platelet Count 252 K/mm3 (150-450); RBC Distribution Width CV 13.9 % (11.6-14.6); RBC Distribution Width SD 47.1 fl (35.1-43.9); Red Blood Count 4.03 M/mm3 (4.2-5.4); White Blood Count 5.1 K/mm3 (4.4-11.0)
[2024-11-18 10:29] LABS: PTHIN 58.1 pg/mL (18.4-80.1)
[2024-11-18 10:45] LABS: Anion Gap 9 (5-15); BUN 34 mg/dL (7-18); BUN/Creat Ratio 19.3 RATIO (10-20); Calcium,Total 10.1 mg/dL (8.5-10.1); Chloride 109 mmol/L (98-107); Creatinine, Serum 1.76 mg/dL (0.55-1.02); EST Glomerular Filtration Rate 30 mL/min (>60); Est Glom Filt Rate - Afr Amer 36 mL/min (>60); Ferritin 47 ng/mL (8-252); Glucose 140 mg/dL (74-106); Iron 74 ug/dL (50-170); Potassium 3.9 mmol/L (3.5-5.1); Sodium Level 137 mmol/L (136-145)
[2024-11-18 10:53] LABS: Vitamin B12 > 2000 pg/mL (211-911); Vitamin D,25 Hydroxy 50.2 ng/mL
== END | disposition home or self-care (01) ==
LOC: MFPLAB 09:06
PROVIDERS: PCP Family Medicine; Referring Provider Family Medicine; Visit Provider Family Medicine
DX: R68.89 Other general symptoms and signs (principal); E11.22 Type 2 diabetes mellitus with diabetic chronic kidney disease; E53.8 Deficiency of other specified B group vitamins
CPT/HCPCS: 36415; 80048; 82306; 82607; 82728; 83540; 83970; 84443; 85027

== ENCOUNTER → 2025-02-16 | Outpatient (CLI) | payer OTHER, MEDICARE, SELFPAY ==
[2025-02-16 11:32] LABS: Anion Gap 13 (5-15); BUN 37 mg/dL (4-19); BUN/Creat Ratio 22.7 RATIO (10-20); Calcium,Total 10.3 mg/dL (7.6-11.0); Carbon Dioxide 16.9 mmol/L (21.0-32.0); Chloride 107 mmol/L (98-108); Creatinine, Serum 1.62 mg/dL (0.70-1.20); EST Glomerular Filtration Rate 33 (>60); Glucose 133 mg/dL (70-99); Potassium 4.2 mmol/L (3.3-5.1); Sodium Level 137 mmol/L (133-145); Vitamin B12 669 pg/mL (180-914)
== END | disposition home or self-care (01) ==
LOC: MFPLAB 09:01
PROVIDERS: PCP Family Medicine; Referring Provider Family Medicine; Visit Provider Family Medicine
DX: E11.22 Type 2 diabetes mellitus with diabetic chronic kidney disease (principal); N18.9 Chronic kidney disease, unspecified
CPT/HCPCS: 36415; 80048; 82607

== ENCOUNTER → 2025-02-24 | Outpatient (CLI) | payer OTHER, MEDICARE, SELFPAY ==
--- NOTE | 2025-02-24 09:20 | US_ITS ---
PROCEDURE: EXT NON VASC LIMITED/SOFT TISS 02/24/2025 REASON FOR EXAM: US RIGHT WRIST NON VASCULAR SOFT TISSUE CHECK FOR FLUID FILLED CY TECHNIQUE: Ultrasound targeted to the palpable abnormality at the right wrist. COMPARISON: None FINDINGS: The palpable lump corresponds to a 1.5 cm x 1 cm x 1.2 cm septated cyst. US/Ext Non Vasc Limited/Soft Tiss IMPRESSION: The palpable lump corresponds to a 1.5 cm 1 cm 1.2 cm septated cyst. Reading Location: [id number]
== END | disposition home or self-care (01) ==
LOC: OPUS 09:19
PROVIDERS: PCP Family Medicine; Referring Provider Family Medicine; Visit Provider Family Medicine
DX: E11.69 Type 2 diabetes mellitus with other specified complication (principal); M67.439 Ganglion, unspecified wrist
CPT/HCPCS: 76882

== ENCOUNTER → 2025-05-18 | Outpatient (CLI) | payer OTHER, MEDICARE, SELFPAY ==
[2025-05-18 13:31] LABS: Creatinine, Urine (random) 144.00 mg/dL (28.00-217.00); Microalbumin,Random Urine < 12.0 mg/L (<20 mg/L)
== END | disposition home or self-care (01) ==
LOC: LABSPEC 10:26
PROVIDERS: PCP Family Medicine; Visit Provider Family Medicine
DX: E11.9 Type 2 diabetes mellitus without complications (principal)
CPT/HCPCS: 82043; 82570